=== PATIENT | male | born 1945 | race Caucasian/White ===

== ENCOUNTER 2017-07-23 19:10 | Emergency (ER) | payer OTHER ==
[2017-07-23 19:23] VITALS: BMI 26.2
[2017-07-23] MEDS ORDERED: CATAPRES TAB 0.1 MG PO ONE (19:45)
[2017-07-23] MEDS ORDERED: CATAPRES TAB 0.1 MG ONE (19:45)
--- NOTE | 2017-07-23 19:47 | DR.GENAD ---
HPI - PCP Primary Care Physician: GUADALUPE - Complaint/Symptoms Chief Complaint Doctors Comments: Patient presents with complaint of stomach pain- diagnosed with H Pylori gastritis four days treated with appropriated medication. He was seen by his primary care physician six days ago, treated with GI cocktail. Today he states that he has epigastric pain and back pain. Chief Complaint:: Pt reports he's huting in his stomach and his back. Pain has been going on for a couple weeks and just got wose today (07/23/17). Pt went to [place] to see Reny Tavarez and was put on med fo H.Pylori Self Treatment fo Chief Complaint: no - Source History Provided: Patient, Significant Other - Mode of Arrival Mode of Arrival: Ambulatory - Timing Onset of Chief Complaint: 07/09/17 PMH - PMH Past Medical History: Yes Past Medical History: GERD, Hypertension Past Medical History Comment: H.Pylori Past Surgical History: Yes Surgical History: Angioplasty/Stents Past Surgical History Comment: BACK SUGERY, STENTS IN RIGHT LEG, STIMULATOR - Family History History of Family Medical Conditions: Yes Family Medical History: Cancer - Social History Does patient currently use any type of tobacco product: Yes Have you used tobacco products in the last 12 months: Yes Type of Tobacco Use: Cigarettes Lives With: Significant Other Lives Where: Home - infectious screening Have you traveled outside the country in the last 6 months?: No Isolation: Standard ROS - Review of Systems Eyes: No Symptoms Reported ENTM: No Symptoms Reported Respiratoy: No Symptoms Reported Cardiovascular: No Symptoms Reported Gastrointestinal/Abdominal: Other (epigastric pain) Genitourinary: No Symptoms Reported Neurological: No Symptoms Reported Musculoskeletal: Back Pain (upper thoracic) Integumentary: No Symptoms Reported Hematologic/Lymphatic: No Symptoms Reported Endocrine: No Symptoms Reported Psychiatric: No Symptoms Reported All Other Systems: Reviewed and Negative PE - Vital Signs Vitals: Temperature 97.9 F Pulse Rate [Left Radial] 80 Pulse Rate 86 Respiratory Rate 18 Blood Pressure [Left Arm] 162/83 Blood Pressure 197/87 O2 Sat by Pulse Oximetry 98 - General Limitations: No Limitations General Appearance: Alert, In No Apparent Distress - Head Head Exam: Normal Inspection, Atraumatic - Eyes Eye exam: Normal Appearance, PERRL, EOMI - ENT ENT Exam: Normal Exam External Ear Exam: Normal External Inspection TM/Canal Exam: Bilateral Normal Nose Exam: Normal Nose Exam, Sinus Tenderness Mouth Exam: Normal Inspection Throat Exam: Normal Inspection - Neck Neck Exam: Normal Inspection, Full ROM - Chest Chest Inspection: Normal Inspection, Symmetric Chest Wall Rise - Respiratory Respiratory Exam: Normal Lung Sounds Bilat Respiratory Exam: Bilateral Clear to Auscultation - Cardiovascular Cardiovascular Exam: Regular Rate, Normal Rhythm - Abdominal Exam Abdominal Exam: Normal Inspection, Normal Bowel Sounds Abdominal Tenderness: Epigastrium - Extremities Extremities Exam: Normal Inspection, Full ROM - Back Back Exam: Normal Inspection, Full ROM, Tenderness (mid upper back) - Neurologic Neurological Exam: Alert, Oriented X3, CN II-XII Intact - Psychiatric Psychiatric Exam: Normal Affect, Normal Mood - Skin Skin Exam: Warm, Dry, Intact ROR - XRAY XRAY Interpreted by: Radiologist (Thoracic spine: 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 Vertebral body heights alignment are otherwise within normal limits. There is no evidence of acute fracture or subluxation. Intervertebral disc spaces are fairly well preserved. Note is made of electrodes from a spinal stimulator device projecting over the mid thoracic spine.: No evidence of acute osseous injury to the throacic spine. Spinal stimulator electrodes projecting over the thoracic spine .) - Diagnosis Discharge Problem: Helicobacter pylori gastritis Chronic back pain Qualifiers: Back pain location: thoracic back pain Back pain laterality: midline Qualified Code(s): M54.6 - Pain in thoracic spine; G89.29 - Other chronic pain; G89.29 - Other chronic pain - Discharge Plan Condition: Stable - Follow ups/Referrals Follow ups/Referrals: Preston Gonzalez [Primary Care Provider] - 3 days - Instructions
--- NOTE | 2017-07-23 20:42 | RAD ---
History: Hurting in stomach and back. Study: Thoracic spine three views. Comparison: MRI from October 16, 2015. 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 Vertebral body heights alignment a re otherwise within normal limits. There is no evidence of acute fracture or subluxation. Interverteb ral disc spaces are fairly well preserved. Note is made of electrodes from a spinal stimulator device projecting over the mid thoracic spine. IMPRESSION: 1. No evidence of acute osseous injury to the thoracic spine. 2. Spinal stimulator electrodes projecting over the thoracic spine as described above. Reported By:
[2017-07-23 21:05] VITALS: BP 146/78
== END 2017-07-23 21:08 | disposition home or self-care (01) ==
LOC: ER 19:10
DX: M54.6 Pain in thoracic spine (principal); G89.29 Other chronic pain; B96.81 Helicobacter pylori [H. pylori] as the cause of diseases classified elsewhere
CPT/HCPCS: 72072; 99282; 99283